=== PATIENT | male | born 1990 | race Caucasian/White ===

== ENCOUNTER 2017-02-11 06:20 | Emergency (ER) | payer BC, OTHER ==
--- NOTE | 2017-02-11 07:13 | EDM.PDOC ---
ED HPI GI/ABDOMINAL - General Chief Complaint: Gastrointestinal Problem Stated Complaint: FLU SYMPTOMS Time Seen by Provider: 02/11/17 07:06 Source of Information: Reports: Patient History Limitations: Reports: No limitations - History of Present Illness INITIAL COMMENTS - FREE TEXT/NARRATIVE: 26-year-old male presents the ED due to severe diarrhea. Patient started with Augmentin 875 mg per twice a day on February 06 for sinusitis bronchitis. He states he developed diarrhea almost within the day but subsequently the diarrhea has increased in intensity to be 10-15 times per day. No blood noted. A minimal associated cramping. No fever or chills. States his sinus congestion feels better. His personal Dr changed the antibiotic to azithromycin which has not yet picked up. He is feeling quite dizzy and is almost afraid to eat. Has been trying to keep up with fluid losses with Gatorade. He has not been on any antibiotics prior to the Augmentin. Symptom Onset Date: 02/07/17 Timing/Duration: Reports: Day(s):, Getting worse, Gradual onset Location: generalized Quality: Reports: other Severity: severe Improves with: Reports: defecating Context: Reports: other (Use of Augmentin 875 mg twice daily starting on 06 February for sinusitis bronchitis.). Denies: sick contact, bad/questionable food, out of country travel, recent surgery, recent trauma, lifting, activity/exercise Associated Symptoms: Reports: diarrhea, malaise, nausea/vomiting. 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: Other (see below) (None) - Related Data Allergies/ADRs: Allergies Allergy/AdvReac Type Severity Reaction Status Date / Time No Known Allergies Allergy Verified 02/11/17 06:48 Home Meds: Home Meds Amoxicillin/Potassium Clav [Augmentin 875-125 Tablet] 875 mg PO BID 02/11/17 [ History] metroNIDAZOLE [Flagyl] 500 mg PO Q8H #20 tablet 02/11/17 [Rx] Past Medical History - Past Surgical History HEENT Surgical History: Reports: Other (see below) Other HEENT Surgeries/Procedures: ear surgery Social & Family History - Family History Family Medical History: Noncontributory - Tobacco Use Smoking Status *Q: Never Smoker Second Hand Smoke Exposure: No - Caffeine Use Caffeine Use: Reports: Coffee - Recreational Drug Use Recreational Drug Use: No - Living Situation & Occupation Living situation: Reports: single, with family ED ROS GENERAL - Review of Systems Review Of Systems: See Below Constitutional: Reports: malaise, weakness, fatigue, decreased appetite, weight loss. Denies: fever, chills HEENT: Reports: Sinus problem Respiratory: Reports: Cough. Denies: Shortness of Breath, Wheezing, Pleuritic Chest Pain Cardiovascular: Reports: No symptoms (Nonproductive.) Endocrine: Reports: no symptoms GI/Abdominal: Reports: Anorexia, Decreased appetite, Mucous in stool, Nausea, Stool incontinence. Denies: Bloody stool, Difficulty swallowing, Distension, Flatus, Hematemesis, Hematochezia, Melena, Vomiting, Other : Reports: no symptoms Musculoskeletal: Reports: no symptoms Skin: Reports: no symptoms Neurological: Reports: No Symptoms, Change in Speech Hematologic/Lymphatic: Reports: no symptoms ED EXAM, GI/ABD - Physical Exam Exam: See Below Exam Limited By: No limitations General Appearance: alert, WD/WN, no apparent distress Eyes: bilateral: normal appearance Throat/Mouth: Other (Pharyngitis) Head: atraumatic, normocephalic Neck: normal inspection, supple, non-tender ( tongue are mildly dry.), full range of motion. No: lymphadenopathy (L), lymphadenopathy (R) Respiratory/Chest: no respiratory distress, lungs clear, normal breath sounds, no accessory muscle use Cardiovascular: normal peripheral pulses, regular rate, rhythm, no gallop, no murmur GI/Abdominal: normal bowel sounds, soft, non tender, no organomegaly, no distention, no abnormal bruit, no mass, hyperactive bowel sounds Back Exam: normal inspection, full range of motion. No: CVA tenderness (L), CVA tenderness (R) Extremities: normal inspection, normal range of motion, non-tender, no pedal edema, normal capillary refill Neurological: alert, oriented, CN II-XII intact, normal cognition, normal gait, normal reflexes Psychiatric: normal affect, normal mood Skin Exam: Warm, Dry, Intact, Normal color, No rash Course - Vital Signs Last Recorded V/S: Last Vital Signs Temp 35.8 C 02/11/17 11:30 Pulse 99 02/11/17 11:30 Resp 16 02/11/17 11:30 BP 122/82 02/11/17 11:30 Pulse Ox 99 02/11/17 11:30 Orthostatic Blood Pressure [ 128/73 Standing] Orthostatic Blood Pressure [ 127/79 Sitting] Orthostatic Blood Pressure [ 117/74 Supine] - Orders/Labs/Meds Labs: Laboratory Tests 02/11/17 02/11/17 02/11/17 Range/Units 07:29 07:29 09:15 WBC 9.10 H (4.23-9.07) K/mm3 RBC 5.70 (4.63-6.08) M/mm3 Hgb 17.2 (13.7-17.5) gm/L Hct 49.2 (40.1-51.0) % MCV 86.3 (79.0-92.2) fl MCH 30.2 (25.7-32.2) pg MCHC 35.0 (32.2-35.5) g/dl RDW Std Deviation 40.1 (35.1-43.9) fL Plt Count 300 (163-337) K/mm3 MPV 9.2 L (9.4-12.3) fl Neutrophils % (Manual) 65 H (40-60) % Band Neutrophils % 19 H (0-10) % Lymphocytes % (Manual) 12 L (20-40) % Atypical Lymphs % 0 % Monocytes % (Manual) 4 (2-10) % Eosinophils % (Manual) 0 L (0.8-7.0) % Basophils % (Manual) 0 L (0.2-1.2) Platelet Estimate Adequate RBC Morph Comment Normal Sodium 137 (136-145) mEq/L Potassium 4.1 (3.5-5.1) mEq/L Chloride 101 (98-107) mEq/L Carbon Dioxide 23 (21-32) mEq/L Anion Gap 17.1 H (5-15) BUN 13 (7-18) mg/dL Creatinine 1.3 (0.7-1.3) mg/dL Est Cr Clr Drug Dosing 82.14 mL/min Estimated GFR (MDRD) > 60 (>60) mL/min BUN/Creatinine Ratio 10.0 L (14-18) Glucose 89 (74-106) mg/dL Calcium 9.4 (8.5-10.1) mg/dL Total Bilirubin 0.5 (0.2-1.0) mg/dL AST 31 (15-37) U/L ALT 25 (16-63) U/L Alkaline Phosphatase 77 (46-116) U/L C-Reactive Protein 1.5 H* (<1.0) mg/dL Total Protein 8.6 H (6.4-8.2) g/dl Albumin 4.0 (3.4-5.0) g/dl Globulin 4.6 gm/dL Albumin/Globulin Ratio 0.9 L (1-2) Urine Color Yellow (Yellow) Urine Appearance Clear (Clear) Urine pH 5.5 (5.0-8.0) Ur Specific [place] 1.025 (1.005-1.030) Urine Protein Trace H (Negative) Urine Glucose (UA) 2+ H (Negative) Urine Ketones Trace H (Negative) Urine Occult Blood Negative (Negative) Urine Nitrite Negative (Negative) Urine Bilirubin 1+ H (Negative) Urine Urobilinogen 0.2 (0.2-1.0) Ur Leukocyte Esterase Negative (Negative) Urine RBC Not seen (0-5) /hpf Urine WBC Not seen (0-5) /hpf Ur Squamous Epith Cells 0-5 (0-5) /hpf Urine Bacteria Not seen (FEW) /hpf Urine Mucus Few (FEW) /hpf C.difficile [id number]-[id number] C. difficile Tox (PCR) 02/11/17 Range/Units 10:10 WBC (4.23-9.07) K/mm3 RBC (4.63-6.08) M/mm3 Hgb (13.7-17.5) gm/L Hct (40.1-51.0) % MCV (79.0-92.2) fl MCH (25.7-32.2) pg MCHC (32.2-35.5) g/dl RDW Std Deviation (35.1-43.9) fL Plt Count (163-337) K/mm3 MPV (9.4-12.3) fl Neutrophils % (Manual) (40-60) % Band Neutrophils % (0-10) % Lymphocytes % (Manual) (20-40) % Atypical Lymphs % % Monocytes % (Manual) (2-10) % Eosinophils % (Manual) (0.8-7.0) % Basophils % (Manual) (0.2-1.2) Platelet Estimate RBC Morph Comment Sodium (136-145) mEq/L Potassium (3.5-5.1) mEq/L Chloride (98-107) mEq/L Carbon Dioxide (21-32) mEq/L Anion Gap (5-15) BUN (7-18) mg/dL Creatinine (0.7-1.3) mg/dL Est Cr Clr Drug Dosing mL/min Estimated GFR (MDRD) (>60) mL/min BUN/Creatinine Ratio (14-18) Glucose (74-106) mg/dL Calcium (8.5-10.1) mg/dL Total Bilirubin (0.2-1.0) mg/dL AST (15-37) U/L ALT (16-63) U/L Alkaline Phosphatase (46-116) U/L C-Reactive Protein (<1.0) mg/dL Total Protein (6.4-8.2) g/dl Albumin (3.4-5.0) g/dl Globulin gm/dL Albumin/Globulin Ratio (1-2) Urine Color (Yellow) Urine Appearance (Clear) Urine pH (5.0-8.0) Ur Specific [place] (1.005-1.030) Urine Protein (Negative) Urine Glucose (UA) (Negative) Urine Ketones (Negative) Urine Occult Blood (Negative) Urine Nitrite (Negative) Urine Bilirubin (Negative) Urine Urobilinogen (0.2-1.0) Ur Leukocyte Esterase (Negative) Urine RBC (0-5) /hpf Urine WBC (0-5) /hpf Ur Squamous Epith Cells (0-5) /hpf Urine Bacteria (FEW) /hpf Urine Mucus (FEW) /hpf C.difficile [id number]-[id number] Presumptive negative C. difficile Tox (PCR) Negative Meds: Medications Discontinued Medications Generic Name Dose Route Start Last Admin Trade Name Freq PRN Reason Stop Dose Admin Dextrose/Sodium Chloride 1,000 mls @ 999 mls/hr 02/11/17 07:15 02/11/17 07:34 Dextrose 5%-Normal Saline IV 999 mls/hr ASDIRECTED YESSICA Administration Lactated Ringer's 1,000 mls @ 999 mls/hr 02/11/17 08:24 02/11/17 08:37 Ringers, Lactated IV 02/11/17 09:24 999 mls/hr .BOLUS ONE Administration Metronidazole 500 mg 02/11/17 09:24 02/11/17 09:32 Flagyl PO 02/11/17 09:25 500 mg ONETIME ONE Administration Ondansetron HCl 4 mg 02/11/17 07:14 02/11/17 07:35 Zofran IVPUSH 02/11/17 07:15 4 mg ONETIME ONE Administration - Radiology Interpretation Free Text/Narrative:: 26-year-old male presents the ED with gradually worsening diarrhea since starting Augmentin 875 mg tablets twice daily on February 06 for sinusitis bronchitis. Presently is having 14-15 loose stools per day. Almost every 45 minutes. He stopped the Augmentin last night. Minimal associated cramp. Minimal associated nausea. He is dizzy and lightheaded when standing however. Feels weak and drained. By history he most likely has Clostridium difficile enteritis. Plan IV D5 normal saline at open. CBC CMP CRP urinalysis to be done. He stopped collected for WBCs and C. difficile. - Re-Assessments/Exams Free Text/Narrative Re-Assessment/Exam: 02/11/17 08:22 labs are back revealed a white count of 9.10 with 65% neutrophils and 19% bands reported. Hemoglobin is 17.2 with hematocrit of 49.2 indicating some degree of hemoconcentration platelets are 300,000. Sodium 137 potassium 4.1 bicarbonate is 23. Anion gap is mildly elevated at 17.1 creatinine is 1.3 CRP is 1.5. 02/11/17 08:25 patient is yet to void or to have a bowel movement for C. difficile toxin testing. First it is pretty well complete. Second IV will be Ringer's lactate and open. 02/11/17 09:23 still has not been able to produce a stool. Departure - Departure Time of Disposition: 11:26 Disposition: Home, Self-Care 01 Condition: fair Clinical Impression: Diarrhea in adult patient Prescriptions: metroNIDAZOLE [Flagyl] 500 mg PO Q8H #20 tablet Instructions: Clostridium Difficile FAQs - [facility] Referrals: Kristin Sharp DO [Primary Care Provider] - Forms: ED Department Discharge Additional Instructions: Evaluation in the emergency room today in regards to development of severe diarrhea since starting Augmentin 875 mg tablets on the of this month. Diarrhea is greater than 10-15 times per day. This is highly suggestive of Clostridium difficile infection which is digitoxin secreted by a bacteria that lives in the colon normally. It occurs when strong antibiotics no cough the normal at bacteria that floor of the intestine I allowing the Clostridium difficile to dominate the bowel and secreted stalks and causing severe diarrhea. Treatment is to take antibiotic Flagyl 500 mg 3 times daily for the next 7 days to clear up infection. First tablet was provided in the ED. Diet is to be clear fluids such as Gatorade Powerade ideally 5 or 6 ounces sig per hour to maintain hydration. Is hungry he may try soda crackers. The advance to soup broth and then to turkey rice turkey noodle soup etc. To stay way from all dairy products and no apple or grape juice until stools are formed back up. Usually diarrhea starts to improve within 48 hours of starting antibiotics. The Augmentin antibiotic course is to be discontinued and I would suggest not using it ever again. Follow up with her personal care provider in 4-5 days time to make sure that you are recovering from this illness.
[2017-02-11] MEDS ORDERED: Ondansetron 4 MG/2 ML SDV IVPUSH ONE (07:14)
[2017-02-11] MEDS ORDERED: Dextrose 5%-0.9% NaCl 1,000 ML IV SCH (07:15)
[2017-02-11] MEDS ORDERED: Lactated Ringers 1,000 ML IV ONE (08:24)
[2017-02-11] MEDS ORDERED: metroNIDAZOLE 500 MG Tab PO ONE (09:24)
[2017-02-11 12:02] VITALS: BP 122/82
== END 2017-02-11 11:45 | disposition home or self-care (01) ==
LOC: JD.ED 06:20
DX: R19.7 Diarrhea, unspecified (principal)
CPT/HCPCS: 36415; 80053; 81001; 85025; 86140; 87493; 89055; 96361; 96374; 99284; A9270; J2405; J7042; J7120

== ENCOUNTER 2021-07-20 13:24 | Emergency (ER) | payer OTHER ==
[2021-07-20 13:40] VITALS: BP 141/85; PULSE 58
--- NOTE | 2021-07-20 15:02 | CR ---
Chest: 2 views of the chest were obtained. Comparison: No previous study is available. Heart size and mediastinum are normal. Lungs are clear with no acute parenchymal change. No acute osseous abnormality is appreciated. Impression: 1. Nothing acute is appreciated on 2 view chest x-ray. Diagnostic code #1
--- NOTE | 2021-07-20 16:46 | EDM.PDOC ---
ED HPI GENERAL MEDICAL PROBLEM - General Chief Complaint: Chest Pain Stated Complaint: CHEST PAIN Time Seen by Provider: 07/20/21 13:46 Source of Information: Reports: Patient History Limitations: Reports: No Limitations - History of Present Illness INITIAL COMMENTS - FREE TEXT/NARRATIVE: The patient presents with left sided chest pain. This started 3 days ago. He played some volleyball and it felt worse. He has no shortness of breath. He has no fever, chills, cough, abdominal pain, nausea or vomiting. He has no health problems. He does not smoke. He has no history of hypertension, hypercholesterolemia or diabetes. He works out regularly. Onset: Sudden Duration: Day(s): (3) Location: Reports: Chest Quality: Reports: Sharp Severity: Moderate Improves with: Reports: None Worsens with: Reports: None Associated Symptoms: Reports: Chest Pain. Denies: Cough, Fever/Chills, Headaches, Nausea/Vomiting, Shortness of Breath Left Chest Pain Score (Numeric/FACES): 4 - Related Data Allergies Allergy/AdvReac Type Severity Reaction Status Date / Time No Known Allergies Allergy Verified 07/20/21 13:40 Home Meds: Home Meds ALPRAZolam [Alprazolam] 0.25 mg PO DAILY PRN 07/20/21 [History] Past Medical History - Infectious Disease History Infectious Disease History: Reports: Chicken Pox - Past Surgical History HEENT Surgical History: Reports: Other (See Below) Other HEENT Surgeries/Procedures: ear surgery Social & Family History - Family History Family Medical History: No Pertinent Family History - Tobacco Use Tobacco Use Status *Q: Never Tobacco User - Caffeine Use Caffeine Use: Reports: Coffee - Recreational Drug Use Recreational Drug Use: No - Living Situation & Occupation Living situation: Reports: Single, with Family ED ROS GENERAL - Review of Systems Review Of Systems: See Below Constitutional: Reports: No Symptoms HEENT: Reports: No Symptoms Respiratory: Reports: No Symptoms Cardiovascular: Reports: Chest Pain Endocrine: Reports: No Symptoms GI/Abdominal: Reports: No Symptoms : Reports: No Symptoms Musculoskeletal: Reports: No Symptoms ED EXAM, GENERAL - Physical Exam Exam: See Below Exam Limited By: No Limitations General Appearance: Alert, No Apparent Distress Ears: Normal External Exam Nose: Normal Inspection Head: Atraumatic, Normocephalic Neck: Normal Inspection Respiratory/Chest: No Respiratory Distress, Lungs Clear, Normal Breath Sounds Cardiovascular: Regular Rate, Rhythm, No Edema, No Murmur GI/Abdominal: Soft, Non-Tender, No Organomegaly, No Mass Back Exam: Normal Inspection Extremities: Normal Inspection #1 Interpretation EKG Date: 07/20/21 Time: 13:32 Rhythm: Other (sinus bradycardia) Rate (Beats/Min): 59 [place]: Normal P-Wave: Present QRS: Normal ST-T: Elevated (normal early repol) QT: Normal #2 Interpretation EKG Date: 07/20/21 Time: 15:22 Rhythm: Other (sinus bradycardia) Rate (Beats/Min): 53 [place]: Normal P-Wave: Present QRS: Normal ST-T: Elevated (normal early repol) QT: Normal Course - Vital Signs Last Recorded V/S: Last Vital Signs Temp 97.6 F 07/20/21 13:34 Pulse 58 L 07/20/21 13:34 Resp 20 07/20/21 13:34 BP 141/85 H 07/20/21 13:34 Pulse Ox 99 07/20/21 13:34 - Orders/Labs/Meds Orders: Active Orders 24 hr Category Date Time Status Cardiac Monitoring [RC] . DIRECTED Care 07/20/21 14:11 Active Labs: Laboratory Tests 07/20/21 07/20/21 07/20/21 Range/Units 13:50 13:50 13:50 WBC 4.21 L (4.23-9.07) K/mm3 RBC 4.95 (4.63-6.08) M/mm3 Hgb 15.1 D (13.7-17.5) gm/dl Hct 44.4 (40.1-51.0) % MCV 89.7 D (79.0-92.2) fl MCH 30.5 (25.7-32.2) pg MCHC 34.0 (32.2-35.5) g/dl RDW Std Deviation 41.9 (35.1-43.9) fL Plt Count 237 (163-337) K/mm3 MPV 9.6 (9.4-12.3) fl Neut % (Auto) 53.2 (34.0-67.9) % Lymph % (Auto) 34.0 (21.8-53.1) % [place] % (Auto) 10.2 (5.3-12.2) % Eos % (Auto) 2.1 (0.8-7.0) Baso % (Auto) 0.5 (0.1-1.2) % Neut # (Auto) 2.24 (1.78-5.38) K/mm3 Lymph # (Auto) 1.43 (1.32-3.57) K/mm3 [place] # (Auto) 0.43 (0.30-0.82) K/mm3 Eos # (Auto) 0.09 (0.04-0.54) K/mm3 Baso # (Auto) 0.02 (0.01-0.08) K/mm3 D-Dimer, Quantitative 0.39 (0.19-0.50) mg/L Sodium 141 (136-145) mEq/L Potassium 3.9 (3.5-5.1) mEq/L Chloride 105 (98-107) mEq/L Carbon Dioxide 28 (21-32) mEq/L Anion Gap 11.9 (5-15) BUN 13 (7-18) mg/dL Creatinine 1.0 (0.7-1.3) mg/dL Est Cr Clr Drug Dosing 114.00 mL/min Estimated GFR (MDRD) > 60 (>60) mL/min BUN/Creatinine Ratio 13.0 L (14-18) Glucose 84 (70-99) mg/dL Calcium 8.9 (8.5-10.1) mg/dL Total Bilirubin 0.8 (0.2-1.0) mg/dL AST 90 H (15-37) U/L ALT 73 H (16-63) U/L Alkaline Phosphatase 47 (46-116) U/L Troponin I 0.047 (0.00-0.056) ng/mL C-Reactive Protein (<1.0) mg/dL Total Protein 7.7 (6.4-8.2) g/dl Albumin 4.1 (3.4-5.0) g/dl Globulin 3.6 gm/dL Albumin/Globulin Ratio 1.1 (1-2) Monoscreen (NEGATIVE) 07/20/21 07/20/21 07/20/21 Range/Units 13:50 13:50 15:51 WBC (4.23-9.07) K/mm3 RBC (4.63-6.08) M/mm3 Hgb (13.7-17.5) gm/dl Hct (40.1-51.0) % MCV (79.0-92.2) fl MCH (25.7-32.2) pg MCHC (32.2-35.5) g/dl RDW Std Deviation (35.1-43.9) fL Plt Count (163-337) K/mm3 MPV (9.4-12.3) fl Neut % (Auto) (34.0-67.9) % Lymph % (Auto) (21.8-53.1) % [place] % (Auto) (5.3-12.2) % Eos % (Auto) (0.8-7.0) Baso % (Auto) (0.1-1.2) % Neut # (Auto) (1.78-5.38) K/mm3 Lymph # (Auto) (1.32-3.57) K/mm3 [place] # (Auto) (0.30-0.82) K/mm3 Eos # (Auto) (0.04-0.54) K/mm3 Baso # (Auto) (0.01-0.08) K/mm3 D-Dimer, Quantitative (0.19-0.50) mg/L Sodium (136-145) mEq/L Potassium (3.5-5.1) mEq/L Chloride (98-107) mEq/L Carbon Dioxide (21-32) mEq/L Anion Gap (5-15) BUN (7-18) mg/dL Creatinine (0.7-1.3) mg/dL Est Cr Clr Drug Dosing mL/min Estimated GFR (MDRD) (>60) mL/min BUN/Creatinine Ratio (14-18) Glucose (70-99) mg/dL Calcium (8.5-10.1) mg/dL Total Bilirubin (0.2-1.0) mg/dL AST (15-37) U/L ALT (16-63) U/L Alkaline Phosphatase (46-116) U/L Troponin I 0.053 (0.00-0.056) ng/mL C-Reactive Protein <0.2 (<1.0) mg/dL Total Protein (6.4-8.2) g/dl Albumin (3.4-5.0) g/dl Globulin gm/dL Albumin/Globulin Ratio (1-2) Monoscreen Negative (NEGATIVE) - Re-Assessments/Exams Free Text/Narrative Re-Assessment/Exam: 07/20/21 16:46 I ordered an EKG, CXR and labs. His EKG shows a sinus bradycardia with normal early repol. His WBC was low at 4.21. His D-dimer was negative. His AST was elevated at 90. His ALT was elevated at 73. His troponin was negative but on the high side of normal at 0.47. I also ordered a CRP and that was negative. His mono was negative. I did a repeat EKG and it shows a NSR with no acute changes. His repeat troponin was still normal. I will discharge him home. Departure - Departure Time of Disposition: 17:00 Disposition: Home, Self-Care 01 Condition: Good Clinical Impression: Atypical chest pain Referrals: PCP,Not In Area [Primary Care Provider] - Edson Pastor MD [Physician] - 1 Week Additional Instructions: Take tylenol or motrin as needed for pain. Do not work out for a couple of days. Your liver enzymes were slightly elevated. I would have them rechecked within a week. Please return if you are worse. Sepsis Event Note (ED) - Focused Exam Vital Signs: Vital Signs Temp Pulse Resp BP Pulse Ox 07/20/21 13:34 97.6 F 58 L 20 141/85 H 99 - My Orders Last 24 Hours: My Active Orders 07/20/21 14:11 Cardiac Monitoring [RC] . DIRECTED - Assessment/Plan Last 24 Hours: My Active Orders 07/20/21 14:11 Cardiac Monitoring [RC] . DIRECTED
== END 2021-07-20 17:07 | disposition home or self-care (01) ==
LOC: JD.ED 13:24
DX: R07.89 Other chest pain (principal)
CPT/HCPCS: 36415; 71046; 71046-26; 80053; 84484; 85025; 85379; 86140; 86308; 93005; 93010; 99283; 99285-25